=== PATIENT | male | born 1960 | race Caucasian/White ===

== ENCOUNTER 2021-06-12 10:51 | Emergency (ER) | payer BC ==
[2021-06-12 12:32] LABS: HEMOGLOBIN 15.9 gm/dl (14.0-17.5); RED BLOOD COUNT 5.3 M/UL (4.20-5.50)
[2021-06-12 12:57] LABS: BUN/CREATININE RATIO 14 (0-10)
[2021-06-12] MEDS ORDERED: ENDOCET 5-3251 EACH PO (14:41)
[2021-06-12] MEDS ORDERED: ZOFRAN ODT 4 MG4 MG SL (14:41)
== END 2021-06-12 15:22 | disposition home or self-care (01) ==
LOC: ER1 10:51
DX: K56.7 Ileus, unspecified (principal); K52.9 Noninfective gastroenteritis and colitis, unspecified; E11.9 Type 2 diabetes mellitus without complications
CPT/HCPCS: 74018; 80053; 81001; 83605; 83690; 85025; 96374; 96375; 99284; J1885; J2270; J2405